=== PATIENT | male | born 1975 | race American Indian/Alaskan Native ===

== ENCOUNTER 2021-04-30 18:58 | Emergency (ER) | payer SELFPAY ==
--- NOTE | 2021-04-30 20:05 | Emergency Department Report ---
ED Shortness of Breath HPI - General Chief Complaint: Extremity Injury, Lower Stated Complaint: SOB,SWOLLEN LEGS AND FEET Time Seen by Provider: 04/30/21 19:46 Source: patient Mode of arrival: Ambulatory Limitations: No Limitations - History of Present Illness Initial Comments: Patient presents with shortness of breath. He is actually been having shortness of breath and actually describes orthopnea for the last several days. He has developed some swelling in the feet and ankles. He has noticed a sharp chest pain when he takes a deep breath. He states that he is not really had a cough. He has had symptoms like this before, although these are more mild. Previously when this happened, he went to [place]. He was told that he had congestive h eart failure. He was placed on a water pill and told to see a material worker. He could not afford to see cardiology. He ultimately stopped taking the water pill because he could not afford it and keep up with it. Now, his symptoms are returning. There is a history of congestive heart failure in his family. He admits that he is still eating salt. He has no history of recent travel. He states that both legs are swollen. He does not have significant myalgias. - Related Data Previous Rx's Medication Instructions Recorded Last Taken Type Furosemide [Lasix] 40 mg PO DAILY #10 tablet 04/30/21 Unknown Rx Potassium Chloride [K-Dur] 20 meq PO QDAY #10 tablet 04/30/21 Unknown Rx ED Review of Systems ROS: Stated complaint: SOB,SWOLLEN LEGS AND FEET Other details as noted in HPI Comment: All other systems reviewed and negative Constitutional: denies: fever Eyes: denies: eye pain ENT: denies: throat pain Respiratory: denies: cough Cardiovascular: as per HPI Endocrine: denies: unexplained weight loss Gastrointestinal: denies: abdominal pain Genitourinary: denies: dysuria Musculoskeletal: denies: back pain Skin: denies: rash Neurological: denies: headache Hematological/Lymphatic: denies: easy bruising ED Past Medical Hx - Past Medical History Previous Medical History?: Yes Hx Hypertension: Yes Hx Congestive Heart Failure: Yes - Family History Family history: CAD/DE, hypertension - Social History Smoking Status: Current Every Day Smoker (We discussed tobacco cessation x3 minutes) Substance Use Type: Marijuana - Medications Home Medications: Home Medications Medication Instructions Recorded Confirmed Last Taken Type Furosemide [Lasix] 40 mg PO DAILY #10 tablet 04/30/21 Unknown Rx Potassium Chloride [K-Dur] 20 meq PO QDAY #10 tablet 04/30/21 Unknown Rx ED Physical Exam - General Limitations: No Limitations, Other (Pulse ox was noted. He is slightly hypoxic. This improves with treatment.) General appearance: alert, in distress (Mild) - Head Head exam: Present: atraumatic, normocephalic - Eye Eye exam: Present: normal appearance, EOMI. Absent: scleral icterus - ENT ENT exam: Present: normal exam, normal orophraynx - Neck Neck exam: Present: normal inspection. Absent: meningismus - Respiratory Respiratory exam: Present: respiratory distress, rales (Mild bilateral) - Cardiovascular Cardiovascular Exam: Present: normal rhythm, tachycardia. Absent: JVD - GI/Abdominal GI/Abdominal exam: Present: soft. Absent: tenderness - Extremities Exam Extremities exam: Present: normal capillary refill, pedal edema (Bilateral 3+) - Back Exam Back exam: Absent: CVA tenderness (R), CVA tenderness (L) - Neurological Exam Neurological exam: Present: alert, oriented X3, CN II-XII intact, normal gait - Psychiatric Psychiatric exam: Present: normal affect, normal mood - Skin Skin exam: Present: warm, dry ED Course Vital Signs 04/30/21 19:45 Temperature 98.1 F Pulse Rate 101 H Respiratory 18 Rate Blood Pressure 147/94 O2 Sat by Pulse 93 Oximetry - Reevaluation(s) Reevaluation #1: 04/30/21 20:05 IV and labs were ordered. EKG was ordered. Old records reviewed. Reevaluation #2: 04/30/21 22:04 Labs are noted. Patient was discharged. ED Medical Decision Making - Lab Data Result diagrams: 04/30/21 20:02 04/30/21 20:02 - EKG Data -: EKG Interpreted by Az - EKG Data 04/30/21 22:04 2136-EKG was obtained at 2136. It shows a sinus tachycardia 102. Intervals are otherwise normal with a QRS of 91 and a QT corrected of 472. Patient has no ST depression suggestive of ischemia. There are T wave changes including flattening in 1 as well as aVL. There is flattening in V1 and V2. There is flattening in V3. Patient has LVH. There is no old for comparison. - Radiology Data Radiology results: report reviewed - Medical Decision Making Patient presents with chest pain, pedal edema, shortness of breath, as well as rails. He has a history of congestive heart failure. He has never had a heart attack before. He does seem to have evidence of CHF at this time. Symptoms have been prolonged. There is no change in EKG or troponin suggestive of ACS or STEMI. He does not have evidence of pneumonia clinically. I do not believe this represents coronavirus given his current presentation. He does have dependent edema. He admits that he has been noncompliant. We discussed compliance. He can follow-up with cardiology for further treatment and evaluation. Critical Care Time: No Critical care attestation.: If time is entered above; I have spent that time in minutes in the direct care of this critically ill patient, excluding procedure time. ED Disposition Clinical Impression: Shortness of breath, Dependent edema, Tobacco abuse, Noncompliance Pulmonary edema Qualifiers: Chronicity: acute Qualified Code(s): J81.0 - Acute pulmonary edema Disposition: 01 HOME / SELF CARE / HOMELESS Is pt being admited?: No Condition: Stable Instructions: Shortness of Breath, Adult, [id number], Edema, Pulmonary Edema, Steps to Quit Smoking, Pulmonary Edema (ED) Additional Instructions: Stop eating salt. Drink water. Elevate the feet. Return for problems. Follow-up with your regular doctor for recheck and further management. Prescriptions: Potassium Chloride [K-Dur] 20 meq PO QDAY #10 tablet Furosemide [Lasix] 40 mg PO DAILY #10 tablet Referrals: PRIMARY CAREMD [Referring] - 3-5 Days OLY MICHELE MD [Staff Physician] - 3-5 Days FIORDALIZA WYNNE MD [Staff Physician] - 3-5 Days
--- NOTE | 2021-04-30 20:20 | XRay Report ---
CHEST 2 VIEWS INDICATION / CLINICAL INFORMATION: Dyspnea with crackles. Dry cough and some difficulty breathing. Bi lateral leg pain and swelling. COMPARISON: None available. FINDINGS: SUPPORT DEVICES: None. HEART / MEDIASTINUM: There is mild cardiomegaly with a left ventricular configuration. Pulmonary vasc ulature is borderline. LUNGS / PLEURA: Interstitial lung markings are slightly increased. There is minimal prominence of the interlobar fissures and there is a trace amount of right pleural fluid. No pneumothorax. ADDITIONAL FINDINGS: No significant additional findings. IMPRESSION: Mild cardiomegaly with probable minimal congestive heart failure. Signer Name: Juan Smyth MD Signed: 04/30/2021 8:16 PM Workstation Name: [id number]
[2021-04-30 20:32] LABS: Hematocrit 43.6 % (35.5-45.6); Hemoglobin 14.4 gm/dl (11.8-15.2); Mean Corpuscular HGB Conc 33 % (32-34); Mean Corpuscular Volume 96 fl (84-94); Platelet Count 190 K/mm3 (140-440); Red Blood Count 4.54 M/mm3 (3.65-5.03); Red Cell Distribution Width 17.1 % (13.2-15.2)
[2021-04-30 20:35] LABS: BUN/Creatinine Ratio 13; Blood Urea Nitrogen 13 mg/dL (9-20); Calcium 8.9 mg/dL (8.4-10.2); Hemolysis Index 9
[2021-04-30] MEDS ORDERED: FUROSEMIDE 20 MG TAB PO ONE (21:46)
[2021-04-30 22:46] VITALS: BP 131/76
--- NOTE | 2021-05-04 18:40 | Electrocardiograph Report ---
[facility] Test Date: 2021-04-30 Test Time: 21:36:54 Pat Name: LAZ WEST Department: Room: Gender: M Psychological Assistant: LILLIANA : 1975 Requested By: DAVID HUNTLEY Order Number: [id number] Reading MD: Aquiles Manzano Measurements Intervals [place] Rate: 102 P: 82 ID: [id number] QRS: -32 QRSD: 91 T: 84 QT: 362 QTc: 472 Interpretive Statements Sinus tachycardia Left atrial enlargement Left axis deviation No previous ECG available for comparison Electronically Signed On 05-04-2021 18:40:30 EDT by Aquiles Manzano
== END 2021-04-30 22:43 | disposition home or self-care (01) ==
LOC: ED 18:58
DX: J81.1 Chronic pulmonary edema (principal); I10 Essential (primary) hypertension; F17.200 Nicotine dependence, unspecified, uncomplicated; F12.90 Cannabis use, unspecified, uncomplicated
CPT/HCPCS: 36415; 71046; 80048; 84484; 85027; 93005; 99283